=== PATIENT | female | born 1995 | race Hispanic/Latino ===

== ENCOUNTER 2020-12-21 19:42 | Emergency (ER) | payer OTHER ==
[2020-12-21] MEDS ORDERED: Ondansetron PF 4 MG/2 ML Vial ONE (20:35)
[2020-12-21 21:27] LABS: Bilirubin Neg (Negative); Blood, Urine 25 (Negative); Clarity Slightly Cloudy (Clear); Glucose, Urine (Dipstick) Normal (Negative); Ketone, Urine 150 mg/dL (Negative); Leukocyte 25 (Negative); Nitrite Negative (Negative); Protein, Urine (Dipstick) 30 mg/dl (Neg-Trace); Specific Gravity, Urine 1.025 (1.002-1.036)
[2020-12-21 21:43] LABS: RBC/HPF 0-3 HPF (0-3); WBC/HPF 0-3 HPF (0-3)
[2020-12-21 21:44] LABS: Bacteria/HPF 1+ HPF (None Seen)
== END 2020-12-21 22:07 | disposition home or self-care (01) ==
LOC: CSHERS 19:42
DX: O23.41 Unspecified infection of urinary tract in pregnancy, first trimester (principal); O21.0 Mild hyperemesis gravidarum; Z3A.12 12 weeks gestation of pregnancy
CPT/HCPCS: 81003; 81015; 87086; 96374; J2405

== ENCOUNTER 2025-03-23 12:59 | Inpatient (IN) | payer BC ==
[2025-03-23 13:22] VITALS: BMI 25.4
[2025-03-23] MEDS: Acetaminophen 325 MG TAB PO PRN ×2 (14:03→21:53)
[2025-03-23] MEDS: Famotidine 20 MG TAB PO SCH (14:04)
[2025-03-23] MEDS: Cyclobenzaprine 10 MG TAB PO SCH (14:04)
[2025-03-23 14:07] LABS: #Basophils Less than 0.03 10x3/uL (0.0-0.2); #Eosinophils 0.21 10x3/uL (0.0-0.5); #Monocytes 0.55 10x3/uL (0.0-1.1); #Neutrophils 5.72 10x3/uL (1.5-8.4); %Basophils 0.1 % (0.0-2.0); %Eosinophils 2.7 % (0.0-6.0); %Lymphocytes 16.9 % (18.0-47.0); %Monocytes 7.0 % (0.0-10.0); %Neutrophils 72.5 % (40.0-75.0); Hematocrit 28.5 % (34.9-44.5); Hemoglobin 9.1 g/dL (12.0-15.5); Mean Corpuscular Hemoglobin 28.0 pg (27.0-33.0); Mean Corpuscular Volume 87.7 fL (81.6-98.3); Platelet Count 253 10x3/uL (150-450); Red Blood Cell (RBC) Count 3.25 10x6/uL (3.90-5.03); White Blood Cell (WBC) Count 7.88 10x3/uL (3.5-10.5)
[2025-03-23 14:08] LABS: Glucose, Urine (Dipstick) Normal (Negative); Leukocyte 500 (Negative); Protein, Urine (Dipstick) 15 mg/dl (Neg-Trace); Specific Gravity, Urine 1.010 (1.005-1.030)
[2025-03-23 14:15] LABS: Bacteria/HPF 3+ HPF (None Seen); CAUTI Indications for Culture Pregnancy; Mucous/LPF 1+ LPF (<2+); RBC/HPF 0-3 HPF (0-3); Sperm/HPF Rare HPF (None Seen)
[2025-03-23 14:16] LABS: Urine Culture Reflex Yes Yes
[2025-03-23 14:21] LABS: ALT (SGPT) Less than 7 U/L (Less than 34); AST (SGOT) 16 U/L (11-34); Albumin 3.2 g/dL (3.1-4.5); Alkaline Phosphatase 60 U/L (40-110); Anion Gap 12 mmol/L (10-20); BUN (Urea Nitrogen) 7 mg/dL (7.0-18.7); Bilirubin, Total 0.3 mg/dL (0.3-1.2); Calc. Creatinine Clearance 181 mL/min (70-130); Calcium 9.1 mg/dL (7.8-10.44); Carbon Dioxide 22 mmol/L (22-29); Chloride 107 mmol/L (98-107); Globulin 3.6 g/dL (2.4-3.5); Glucose 111 mg/dL (70-105); Lipase 13 U/L (8-78); Potassium 3.9 mmol/L (3.5-5.1); Sodium 137 mmol/L (136-145)
[2025-03-23] MEDS ORDERED: Acetaminophen 500 MG TAB PO PRN (14:47)
[2025-03-23] MEDS: cefTRIAXone\\ROCEPHIN 2 GM in Sodium Chloride 0.9% 100 ML IVPB SCH (15:46)
[2025-03-23] MEDS: Clotrimazole 2% 3 Day Vag Cr 22.2 GM TUBE VAG SCH (21:54)
[2025-03-24] MEDS ORDERED: Sodium Chloride 0.65% Nasal 44 ML BOT EA NARE PRN (02:55)
[2025-03-24 05:36] LABS: #Basophils Less than 0.03 10x3/uL (0.0-0.2); #Eosinophils 0.32 10x3/uL (0.0-0.5); #Monocytes 0.57 10x3/uL (0.0-1.1); #Neutrophils 3.94 10x3/uL (1.5-8.4); %Basophils 0.3 % (0.0-2.0); %Eosinophils 4.7 % (0.0-6.0); %Lymphocytes 27.4 % (18.0-47.0); %Monocytes 8.4 % (0.0-10.0); %Neutrophils 58.3 % (40.0-75.0); Hematocrit 25.9 % (34.9-44.5); Hemoglobin 8.3 g/dL (12.0-15.5); Mean Corpuscular Hemoglobin 28.4 pg (27.0-33.0); Mean Corpuscular Volume 88.7 fL (81.6-98.3); Platelet Count 220 10x3/uL (150-450); Red Blood Cell (RBC) Count 2.92 10x6/uL (3.90-5.03); White Blood Cell (WBC) Count 6.76 10x3/uL (3.5-10.5)
[2025-03-24 05:53] LABS: ALT (SGPT) Less than 7 U/L (Less than 34); AST (SGOT) 14 U/L (11-34); Albumin 2.6 g/dL (3.1-4.5); Alkaline Phosphatase 49 U/L (40-110); Anion Gap 10 mmol/L (10-20); BUN (Urea Nitrogen) 6 mg/dL (7.0-18.7); Bilirubin, Total 0.2 mg/dL (0.3-1.2); Calc. Creatinine Clearance 181 mL/min (70-130); Calcium 8.3 mg/dL (7.8-10.44); Carbon Dioxide 22 mmol/L (22-29); Chloride 110 mmol/L (98-107); Globulin 3.1 g/dL (2.4-3.5); Glucose 94 mg/dL (70-105); Potassium 3.8 mmol/L (3.5-5.1); Sodium 138 mmol/L (136-145)
[2025-03-24] MEDS: Ondansetron PF 4 MG/2 ML Vial IVP PRN (08:13)
[2025-03-25 09:28] LABS: Iron 36 ug/dL (50-170); Iron Binding Capacity, Total 328 mcg/dL (265-497)
[2025-03-25] MEDS: Sodium Ferric Gluconate 125 MG, Admixture Fee 1 EACH in Sodium Chloride 0.9% 100 ML IVPB SCH (17:14)
[2025-03-26 04:08] VITALS: BP 94/53; TEMP 98.3
== END 2025-03-26 09:20 | disposition home or self-care (01) | DRG 833 ==
LOC: CSHLD/OP 12:59 → CSHLD 15:14 → CSHANTE 16:10
PROVIDERS: ADMIT Family Medicine; ATTEND Family Medicine
DX: O23.02 Infections of kidney in pregnancy, second trimester (principal); O99.012 Anemia complicating pregnancy, second trimester; Z3A.25 25 weeks gestation of pregnancy; Z79.899 Other long term (current) drug therapy
CPT/HCPCS: 36415; 76705; 76770; 80053; 81001; 83540; 83550; 83690; 85025; 87086; 87480; 87510; 87660; J0696; J2272; J2405; J2916; J7120

== ENCOUNTER 2025-06-20 12:11 | Day surgery (SDC) | payer BC ==
[2025-06-20] MEDS ORDERED: hydrALAZINE 20 MG/ML VIAL SLOW IVP PRN (13:20)
[2025-06-20 15:45] LABS: Fetal Membranes Rupture No Membranes Rupture (No Rupture)
[2025-06-20] MEDS ORDERED: Fluconazole 100 MG TAB PO SCH (16:30)
== END 2025-06-20 17:22 | disposition home health service (06) ==
LOC: CSHLD/OP 12:11
PROVIDERS: ATTEND Family Medicine
DX: O47.1 False labor at or after 37 completed weeks of gestation (principal); O98.813 Other maternal infectious and parasitic diseases complicating pregnancy, third trimester; B37.31 Acute candidiasis of vulva and vagina; O99.283 Endocrine, nutritional and metabolic diseases complicating pregnancy, third trimester; E86.0 Dehydration; Z3A.38 38 weeks gestation of pregnancy
CPT/HCPCS: 84112; 87480; 87510; 87660; 99285